=== PATIENT | male | born 1975 | race Caucasian/White ===

== ENCOUNTER 2017-03-07 22:04 | Emergency (ER) | payer OTHER ==
[2017-03-07 22:13] VITALS: BP 126/85; TEMP 97.6; BMI 26.6
--- NOTE | 2017-03-07 22:15 | PDOC ---
Attending Attestation - Resident Resident Name: Ben Jacoob - ED Attending Attestation I have performed the following: I have examined & evaluated the patient, The case was reviewed & discussed with the resident, I agree w/resident's findings & plan, Exceptions are as noted - HPI HPI: 03/08/17 00:03 41 YO MALE WHO HAD MOVED kitchen APPLIANCES AND THEN LATER DEV ANTERIOR CHEST PAIN AND LEfT SHOULDER JOINT PAIN -HE WAS AT [facility] TODAY AND HAD A CARDIAC WORKUP DONE and he was discharged -he continue to have pain ,susy left shoulder and came to the emergency dept - Physicial Exam PE: 03/08/17 00:07 wnwd 41 yo male complaining of anterior chest pain and pain with movement of his left shoulder head atraumatic,normocephalic neck supple lungs cta b/l cvs [id number] abd soft,nontender,no guarding ext no deformity,good pulses,sensation intact, pain in AC joint left shoulder with movement neuro axox3,ambulatory skin no vescicles,no erythema psych appropriate - Medical Decision Making 03/08/17 01:50 -I received labs from [facility] , negative trop at that institution -b/l blood pressures similar in both arms -cxr no effusions,no infiltrates,normal mediastinum labs reveiwed unremarkable pt felt better after toradol IMP left shoulder strain /referred to ortho
[2017-03-07] MEDS ORDERED: SODIUM CHLORIDE 1,000 ML IV STA (22:22)
[2017-03-07] MEDS ORDERED: KETOROLAC TROMETHAMINE 30 MG/1 ML VIAL IVPUSH ONE (22:23)
[2017-03-07] MEDS ORDERED: KETOROLAC TROMETHAMINE 30 MG/1 ML VIAL ONE (22:38)
--- NOTE | 2017-03-07 22:42 | PDOC ---
History of Present Illness - General Chief Complaint: Respiratory Stated Complaint: PAIN Time Seen by Provider: 03/07/17 22:12 History Source: Patient Exam Limitations: No Limitations - History of Present Illness Initial Comments: 03/07/17 22:26 Patient is a 41M with no significant medical history here today complaining of chest pain since 2:30am. He was evaluated at [facility] and discharged with ibuprofen after getting labs, cxr, and ekg. He says that he moved many boxes in his basement two days ago, then had a wedding where he danced a lot, then had chest pain radiating to his left shoulder and neck. The pain is worse with inspiration, palpation and manipulation of the left arm. The patient denies a history of blood clots, recent travel, leg swelling, hemoptysis , recent trauma and surgery. The patient has abrasions to bother upper extremities. When asked how he got them, he says that he got him from moving things in his basement. He is very concerned with his pain, and states that he just wants something for his pain. EMS reports 12 lead done in the field showing normal sinus rhythm, normal vitals. Past History - Past Medical History Allergies/Adverse Reactions: Allergies Allergy/AdvReac Type Severity Reaction Status Date / Time No Known Allergies Allergy Verified 12/13/16 13:49 - Suicide/Smoking/Psychosocial Hx Smoking History: Never smoked Have you smoked in the past 12 months: No Information on smoking cessation initiated: No Hx Alcohol Use: No Drug/Substance Use Hx: No Review of Systems - Review of Systems Comments:: 03/07/17 22:42 GENERAL/CONSTITUTIONAL: No fever or chills. No weakness. HEAD, EYES, EARS, NOSE AND THROAT: No change in vision. No ear pain or discharge. No sore throat. CARDIOVASCULAR: Positive for chest pain and shortness of breath. RESPIRATORY: Positive for cough. Negative for wheezing, or hemoptysis. GASTROINTESTINAL: No nausea, vomiting, diarrhea or constipation. GENITOURINARY: No dysuria, frequency, or change in urination. MUSCULOSKELETAL: Positive for left shoulder arm pain, and neck pain. SKIN: No rash NEUROLOGIC: No headache, vertigo, loss of consciousness, or change in strength/ sensation. ENDOCRINE: No increased thirst. No abnormal weight change HEMATOLOGIC/LYMPHATIC: No anemia, easy bleeding, or history of blood clots. ALLERGIC/IMMUNOLOGIC: No hives or skin allergy. *Physical Exam - Vital Signs Last Vital Signs Temp Pulse Resp BP Pulse Ox 97.6 F 86 20 126/85 99 03/07/17 22:11 03/07/17 22:11 03/07/17 22:11 03/07/17 22:11 03/07/17 22:11 - Physical Exam Comments: 03/07/17 22:45 GENERAL: Awake, alert, and fully oriented, in no acute distress HEAD: No signs of trauma, normocephalic, atraumatic EYES: PERRLA, EOMI, sclera anicteric, conjunctiva clear ENT: Auricles normal inspection, hearing grossly normal, nares patent, oropharynx clear without exudates. Moist mucosa NECK: Normal ROM, supple, no lymphadenopathy, JVD, or masses LUNGS: No distress, speaks full sentences, clear to auscultation bilaterally HEART: Regular rate and rhythm, normal S1 and S2, no murmurs, rubs or gallops, peripheral pulses normal and equal bilaterally. ABDOMEN: Soft, nontender, normoactive bowel sounds. No guarding, no rebound. No masses EXTREMITIES: Abrasions on his dorsal aspect of both hands bilaterally, abrasions on ventral aspect of both forearms bilaterally. Normal range of motion , no edema. No clubbing or cyanosis. NEUROLOGICAL: Cranial nerves II through XII grossly intact. Normal speech, normal gait, no focal sensorimotor deficits SKIN: Warm, Dry, normal turgor, no rashes or lesions noted. L Shoulder: Tender to palpation, Weakness on inferior pressure during internal rotation, Pain with extension. ED Treatment Course - LABORATORY CBC & Chemistry Diagram: 03/07/17 22:27 03/07/17 22:27 - RADIOLOGY Radiology Studies Ordered: Category Date Time Status CHEST PA & LAT [RAD] Stat Radiology 03/07/17 22:22 Ordered Medical Decision Making - Medical Decision Making 03/07/17 22:46 Patient is a 41M with no significant medical history here today complaining of chest pain. Vital signs stable and normal. Pain is very atypical and consistent with musculoskeletal pain. PERC negative. Will treat his pain with toradol and fluids. Will evaluate with labs, cxr and ekg. Exam of arm/hands is not consistent with patient story, suspect trauma. Patient denies. 03/07/17 22:56 Records requested from [facility]. 03/07/17 23:32 EKG shows normal sinus rhythm and normal rate. No st elevations. No t wave inversions or depressions. Normal CA and QTc intervals. Reassuring EKG. 03/07/17 23:45 Laboratory Tests 03/07/17 03/07/17 22:27 22:27 WBC 9.6 Hgb 14.1 Hct 41.2 Plt Count 159 INR 1.04 CBC normal. 03/07/17 23:56 Patient is more comfortable in bed. CMP, Trop pending. Signed out to Dr Grajeda. *DC/Admit/Observation/Transfer Diagnosis at time of Disposition: Chest pain
[2017-03-07 23:08] LABS: BASOPHIL 0.2 % (0-2.0); EOSINOPHIL 1.2 % (0-4.5); MCH 30.1 pg (25.7-33.7); MCHC 34.3 g/dl (32.0-35.9); MEAN CELL VOLUME 87.5 fl (80-96); MEAN PLT VOLUME 9.9 fl (7.5-11.1); PLATELET COUNT 159 K/MM3 (134-434); RDW 13.7 % (11.9-15.9); WHITE BLOOD COUNT 9.6 K/mm3 (4.0-10.0)
[2017-03-07 23:27] LABS: INR 1.04 (0.82-1.09); PROTHROMBIN TIME (PATIENT) 11.7 SEC (9.98-11.88)
[2017-03-07 23:45] LABS: ALBUMIN 3.8 g/dl (3.4-5.0); ANION GAP 9 (8-16); CALCIUM 7.9 mg/dL (8.5-10.1); CO2 26 mmol/L (21-32); CREATININE 0.9 mg/dL (0.7-1.3); GLUCOSE,RANDOM 109 mg/dL (74-106); SGPT/ALT 30 U/L (12-78)
[2017-03-07 23:50] LABS: ALK PHOS 65 U/L (45-117); BILIRUBIN,TOTAL 0.2 mg/dL (0.2-1.0); CPK 147 IU/L (39-308); TOT PROT 7.2 g/dl (6.4-8.2); TROPONIN I < 0.02 ng/ml (0.00-0.05)
[2017-03-07 23:55] LABS: SGOT/AST 20 U/L (15-37)
--- NOTE | 2017-03-08 00:35 | PDOC ---
*Physical Exam - Vital Signs Last Vital Signs Temp Pulse Resp BP Pulse Ox 97.6 F 86 20 126/85 99 03/07/17 22:11 03/07/17 22:11 03/07/17 22:11 03/07/17 22:11 03/07/17 22:11 - Physical Exam Comments: 03/08/17 00:35 GENERAL: Awake, alert, and fully oriented, in no acute distress HEAD: No signs of trauma, normocephalic, atraumatic EYES: PERRLA, EOMI, sclera anicteric, conjunctiva clear ENT: hearing grossly normal, nares patent, oropharynx clear without exudates. Moist mucosa NECK: Normal ROM, no JVD, or masses LUNGS: No distress, speaks full sentences, clear to auscultation bilaterally HEART: Regular rate and rhythm, normal S1 and S2, no murmurs, rubs or gallops, peripheral pulses normal and equal bilaterally. ABDOMEN: Soft, nontender, normoactive bowel sounds. No guarding, no rebound. No masses EXTREMITIES : Normal inspection, Normal range of motion, no edema. No clubbing or cyanosis. NEUROLOGICAL: Cranial nerves II through XII grossly intact. Normal speech, normal gait, no focal sensorimotor deficits SKIN: Warm, Dry, normal turgor, no rashes or lesions noted. Ext: Left shoulder ttp. Pain with extension and internal rotation. ED Treatment Course - LABORATORY CBC & Chemistry Diagram: 03/07/17 22:27 03/07/17 22:27 - ADDITIONAL ORDERS Additional order review: Laboratory Results 03/07/17 03/07/17 22:27 22:27 PT with INR 11.70 INR 1.04 Sodium 138 Potassium 4.6 Chloride 103 Carbon Dioxide 26 Anion Gap 9 BUN 24 H Creatinine 0.9 Creat Clearance w eGFR > 60 Random Glucose 109 H Calcium 7.9 L Magnesium 2.0 Total Bilirubin 0.2 AST 20 ALT 30 Alkaline Phosphatase 65 Creatine Kinase 147 Troponin I < 0.02 Total Protein 7.2 Albumin 3.8 03/07/17 22:27 RBC 4.70 MCV 87.5 MCHC 34.3 RDW 13.7 MPV 9.9 Neutrophils % 61.0 Lymphocytes % 29.9 Monocytes % 7.7 Eosinophils % 1.2 Basophils % 0.2 - Medications Given in the ED: ED Medications Discontinued Medications Generic Name Dose Route Start Last Admin Trade Name Freq PRN Reason Stop Dose Admin Sodium Chloride 1,000 mls @ 1,000 mls/hr 03/07/17 22:22 03/07/17 23:00 Normal Saline - IV 03/07/17 23:21 1,000 mls/hr ASDIR STA Administration Ketorolac Tromethamine 30 mg 03/07/17 22:23 03/07/17 23:00 Toradol Injection - IVPUSH 03/07/17 22:24 30 mg ONCE ONE Administration Medical Decision Making - Medical Decision Making 03/08/17 00:33 41 yo M with no significant medical history p/w chest and left shoulder pain. Hemodynamically stable and vital signs stable and normal. Left shoulder pain is reproducible and consistent with musculoskeletal pain. Pain treated with Toradol and fluids. Patient denies trauma, but endorses recent heavy lifting of household machine appliances. Recieved handoff from Dr. Jacobo EKG with NSR and rate. Absent st elevations, t wave inversions, or depressions. CBC,CMP: Unremarkable Trop: Neg 03/08/17 00:50 CXR: No acute cardiopulm changes 03/08/17 00:59 BP L arm: 115/75 BP R arm: 118/75 03/08/17 01:06 Stable d/c with strict return precautions. *DC/Admit/Observation/Transfer Diagnosis at time of Disposition: Chest pain Qualifiers: Chest pain type: unspecified Qualified Code(s): R07.9 - Chest pain, unspecified ; R07.9 - Chest pain, unspecified - Discharge Dispostion Disposition: HOME Condition at time of disposition: Stable Admit: No - Referrals Referrals: Obed Deleon MD [Staff Physician] - - Patient Instructions Additional Instructions: Please return to the ED if you experience any worsening/persistent chest pain, shortness of breath, lightheadedness, weakness, or worsening symptoms. Please follow up with your primary care physician. Please refer to orthopedics for shoulder pain. Take ibruprofen as tolerated for pain. - Attestations Physician Attestion: 03/08/17 01:08 I attest to the information in this note.
[2017-03-08] MEDS ORDERED: MAG HYDROX/AL HYDROX/SIMETH 30 ML UNIT-DOSE CUP PO ONE (00:41)
[2017-03-08 05:39] VITALS: PULSE 75
--- NOTE | 2017-03-11 11:50 | EKG ---
Test Reason : Blood Pressure : / mmHG Vent. Rate : 075 BPM Atrial Rate : 075 BPM P-R Int : 136 ms QRS Dur : 078 ms QT Int : 362 ms P-R-T Axes : 040 047 035 degrees QTc Int : 404 ms POOR DATA QUALITY, INTERPRETATION MAY BE ADVERSELY AFFECTED NORMAL SINUS RHYTHM NORMAL ECG NO PREVIOUS ECGS AVAILABLE Confirmed by DELL DIAZ MD ([id number]) on 03/11/2017 11:50:31 AM Referred By: Confirmed By:DELL DIAZ MD
== END 2017-03-08 01:59 | disposition home or self-care (01) ==
LOC: JER 22:04
PROC: 3E0333Z Introduction of Anti-inflammatory into Peripheral Vein, Percutaneous Approach (ICD-10-PCS; principal; 2017-03-07)
DX: R07.89 Other chest pain (principal); S46.812A Strain of other muscles, fascia and tendons at shoulder and upper arm level, left arm, initial encounter; X50.0XXA Overexertion from strenuous movement or load, initial encounter; X50.3XXA Overexertion from repetitive movements, initial encounter; Y93.E6 Activity, residential relocation; Y92.038 Other place in apartment as the place of occurrence of the external cause
CPT/HCPCS: 36415; 71020-TC; 80053; 82550; 83735; 84484; 85025; 85610; 93005; 93010; 96374; 99283-25